=== PATIENT | female | born 1975 | race Caucasian/White ===

== ENCOUNTER → 2018-03-24 | Outpatient (CLI) | payer BC ==
--- NOTE | 2018-03-26 08:28 | MM ---
Reason for exam: screening (asymptomatic). Last mammogram was performed 3 years and 6 months ago. Physical Findings: A clinical breast exam by your physician is recommended on an annual basis and results should be correlated with mammographic findings. MG 3D Screening Mammo W/Cad Bilateral CC and MLO view(s) were taken. Prior study comparison: October 04, 2014, right breast MG work up mamm w CAD RT. September 29, 2014, bilateral MG screening mammo w CAD. The breast tissue is heterogeneously dense. This may lower the sensitivity of mammography. No significant changes when compared with prior studies. ASSESSMENT: Negative, BI-RAD 1 RECOMMENDATION: Routine screening mammogram of both breasts in 1 year.
== END | disposition home or self-care (01) ==
LOC: RADMAMWWP 10:43
PROVIDERS: ATTEND Family Medicine
DX: Z12.31 Encounter for screening mammogram for malignant neoplasm of breast (principal)
CPT/HCPCS: 77063; 77067

== ENCOUNTER → 2018-05-27 | Outpatient (CLI) | payer BC ==
--- NOTE | 2018-05-27 12:16 | MR ---
EXAMINATION TYPE: MR angio head wo con DATE OF EXAM: 05/27/2018 COMPARISON: NONE HISTORY: Cerebral aneurysm, nonruptured, family history of aneurysm TECHNIQUE: Utilizing 3-D [id number]-[id number]-[id number] intracranial MRA of the [place] was performed. FINDINGS: The vertebrobasilar and carotid systems are patent. There is 2 mm nodular extension of the distal ri ght ICA cavernous segment compatible with aneurysm.. Posterior cerebral artery in the right originat es from the anterior circulation. Hypoplastic A1 segment of the right anterior cerebral artery. IMPRESSION: 1. There is a 2 mm aneurysm cavernous segment distal right ICA.
== END | disposition home or self-care (01) ==
LOC: RADMRIMAIN 11:06
PROVIDERS: ATTEND Psychiatry & Neurology Neurology
DX: I67.1 Cerebral aneurysm, nonruptured (principal)
CPT/HCPCS: 70544

== ENCOUNTER → 2019-01-01 | Outpatient (CLI) | payer BC ==
--- NOTE | 2019-01-01 16:07 | MR ---
EXAMINATION TYPE: MR angio head wo con DATE OF EXAM: 01/01/2019 COMPARISON: 05/27/2018 HISTORY: F/U on cerebral aneurysm, family hx TECHNIQUE: Utilizing 3-D [id number]-[id number] intracranial MRA of the [place] was performed. FINDINGS: The vertebrobasilar and carotid systems are patent. There is 2 mm nodular extension of the distal rig ht ICA cavernous segment compatible with aneurysm.. Posterior cerebral artery on the right originates from the anterior circulation. Hypoplastic A1 segment of the right anterior cerebral artery. IMPRESSION: 1. Stable 2 mm right cavernous segment distal ICA aneurysm.
== END | disposition home or self-care (01) ==
LOC: RADMRIMAIN 15:00
PROVIDERS: ATTEND Psychiatry & Neurology Neurology
DX: I67.1 Cerebral aneurysm, nonruptured (principal); Z84.89 Family history of other specified conditions
CPT/HCPCS: 70544

== ENCOUNTER → 2019-04-06 | Outpatient (CLI) | payer BC ==
--- NOTE | 2019-04-08 13:55 | MM ---
Reason for exam: screening (asymptomatic). Last mammogram was performed 1 year ago. History: Taking hormonal contraceptives for 10 years. Physical Findings: A clinical breast exam by your physician is recommended on an annual basis and results should be correlated with mammographic findings. MG 3D Screening Mammo W/Cad Bilateral CC and MLO view(s) were taken. Prior study comparison: March 24, 2018, bilateral MG 3d screening mammo w/cad. October 04, 2014, right breast MG work up mamm w CAD RT. The breast tissue is heterogeneously dense. This may lower the sensitivity of mammography. There is no discrete abnormality. No significant changes when compared with prior studies. ASSESSMENT: Negative, BI-RAD 1 RECOMMENDATION: Routine screening mammogram of both breasts in 1 year.
== END | disposition home or self-care (01) ==
LOC: RADMAMWWP 10:07
PROVIDERS: ATTEND Family Medicine
DX: Z12.31 Encounter for screening mammogram for malignant neoplasm of breast (principal)
CPT/HCPCS: 77063; 77067

== ENCOUNTER 2019-06-07 09:52 | Emergency (ER) | payer BC ==
[2019-06-07 10:02] VITALS: RESP 18
--- NOTE | 2019-06-07 10:40 | XR ---
EXAMINATION TYPE: XR chest 2V DATE OF EXAM: 06/07/2019 COMPARISON: None INDICATION: Chest pain TECHNIQUE: Frontal and lateral views of the chest are obtained. FINDINGS: The heart size is normal. The pulmonary vasculature is normal. The lungs are clear. IMPRESSION: 1. No acute pulmonary process.
[2019-06-07 10:47] LABS: Basophils # (A) 0.1 k/uL (0-0.2); Basophils % (A) 1 %; Eosinophils # (A) 0.2 k/uL (0-0.7); Eosinophils % (A) 3 %; HGB 13.8 gm/dL (11.4-16.0); Lymphocytes # (A) 1.8 k/uL (1.0-4.8); Lymphocytes % (A) 25 %; MCHC 32.9 g/dL (31.0-37.0); MCV 91.2 fL (80.0-100.0); Mean Platelet Volume 8.2; Monocytes # (A) 0.3 k/uL (0-1.0); Monocytes % (A) 5 %; Neutrophils # (A) 4.6 k/uL (1.3-7.7); Neutrophils % (A) 64 %; Platelet Count 291 k/uL (150-450); RDW 12.4 % (11.5-15.5); WBC 7.1 k/uL (3.8-10.6)
[2019-06-07 10:59] LABS: INR 0.9 (<1.2); Partial Thromboplastin Time 22.8 sec (22.0-30.0); Prothrombin Time 9.4 sec (9.0-12.0)
--- NOTE | 2019-06-07 11:05 | ED ---
Chest Pain HPI - General Chief Complaint: Chest Pain Stated Complaint: Chest pain Time Seen by Provider: 06/07/19 10:00 Source: patient Mode of arrival: ambulatory Limitations: no limitations - History of Present Illness Initial Comments: The patient is a 43-year-old female, previously healthy who presents to the emergency room with reported chest pressure. States it's been present since Friday. She describes it as an intermittent pressure without radiation. No associated shortness of breath or nausea. Denies any provocative factors. States that it does feel better when she lays down and is worse when she stands up. Denies ripping or tearing sensation to her back. No chest palpitations. Denies nausea, vomiting or diaphoresis. No epigastric abdominal pain. Denies a cough or hemoptysis. No fevers or chills. Denies any unilateral numbness or weakness. No history of DVT or PE. No calf pain or swelling. No family history of premature cardiac disease. No family history of blood clotting disorders. There are no alleviating, reporting specialist modifying factors - Related Data Home Medications Medication Instructions Recorded Confirmed Norgestimate-Ethinyl Estradiol 1 tab PO HS 06/07/19 06/07/19 [Tri-Estarylla Tablet] Allergies Allergy/AdvReac Type Severity Reaction Status Date / Time No Known Allergies Allergy Verified 06/07/19 09:59 Review of Systems ROS Statement: Those systems with pertinent positive or pertinent negative responses have been documented in the HPI. ROS Other: All systems not noted in ROS Statement are negative. EKG Findings - EKG Comments: EKG Findings:: EKG demonstrates normal sinus rhythm with ventricular rate of 75. FL interval 132. Contrast 92. QTC 435. No acute ST segment elevations or depressions. No signs of Qdygi-Jlavbhgdr-Idvgs or Brugada syndrome. Past Medical History Past Medical History: No Reported History History of Any Multi-Drug Resistant Organisms: None Reported Past Surgical History: Section Past Psychological History: No Psychological Hx Reported Smoking Status: Never smoker Past Alcohol Use History: Occasional Past Drug Use History: None Reported General Exam Limitations: no limitations General appearance: alert, in no apparent distress Head exam: Present: atraumatic, normocephalic, normal inspection Eye exam: Present: normal appearance, PERRL, EOMI. Absent: scleral icterus, conjunctival injection, periorbital swelling ENT exam: Present: normal exam, mucous membranes moist Neck exam: Present: normal inspection. Absent: tenderness, meningismus, lymphadenopathy Respiratory exam: Present: normal lung sounds bilaterally. Absent: respiratory distress, wheezes, rales, rhonchi, stridor Cardiovascular Exam: Present: regular rate, normal rhythm, normal heart sounds. Absent: systolic murmur, diastolic murmur, rubs, gallop, clicks GI/Abdominal exam: Present: soft, normal bowel sounds. Absent: distended, tenderness, guarding, rebound, rigid Extremities exam: Present: normal inspection, full ROM, normal capillary refill. Absent: tenderness, pedal edema, joint swelling, calf tenderness Back exam: Present: normal inspection Neurological exam: Present: alert, oriented X3, CN II-XII intact Psychiatric exam: Present: normal affect, normal mood Skin exam: Present: warm, dry, intact, normal color. Absent: rash Course Vital Signs 06/07/19 06/07/19 06/07/19 10:00 10:09 12:13 Temperature 97.9 F Pulse Rate 66 78 Pulse Rate [ 75 Consultants Intern ] Respiratory 18 18 18 Rate Blood Pressure 134/76 140/87 O2 Sat by Pulse 100 96 Oximetry 06/07/19 12:46 Temperature 98.4 F Pulse Rate 75 Pulse Rate [ Consultants Intern ] Respiratory 18 Rate Blood Pressure 121/72 O2 Sat by Pulse 98 Oximetry Chest Pain MDM - MDM Upon arrival the patient is placed in room 16. A thorough history and physical exam was performed. 12-lead EKG is performed. Laboratory studies were conducted. CBC, CMP and coagulation studies are unremarkable. D-dimer is elevated at 0.56. Discuss results the patient. I was recommending a CT of the patient's chest because of her elevated d-dimer with chest pain. CT demonstrates no acute pulmonary embolism. I reevaluated the patient. Continue discuss the differential. The patient is pain-free at this time. The patient has been symptomatic since Friday troponin remains negative at this time. The patient will be discharged home. Recommend an echo patient's heart as well as Holter monitoring. If she has any new or worsening symptoms she should return to the emergency room. Patient was in agreement with the treatment plan she was discharged home in stable condition Disposition Clinical Impression: Chest pain Disposition: HOME SELF-CARE Condition: Stable Instructions (If sedation given, give patient instructions): Chest Pain (ED) Additional Instructions: Please follow-up with your primary care doctor. I do recommend an echo of your heart. Return to the emergency room for any worsening symptoms Is patient prescribed a controlled substance at d/c from ED?: No Referrals: Jeanmarie Ronquillo MD [Primary Care Provider] - 1-2 days Time of Disposition: 12:37
[2019-06-07 11:14] LABS: ALT 17 U/L (4-34); AST 27 U/L (14-36); African American GFR (CKD) >90 (>60 ml/min/1.73 sqM); Albumin 4.6 g/dL (3.5-5.0); Alkaline Phosphatase 56 U/L (38-126); Anion Gap 10 mmol/L; Blood Urea Nitrogen 14 mg/dL (7-17); Carbon Dioxide 23 mmol/L (22-30); Chloride 102 mmol/L (98-107); Glucose 90 mg/dL (74-99); Non-African American GFR(CKD) >90 (>60 ml/min/1.73 sqM); Potassium 3.9 mmol/L (3.5-5.1); Sodium 135 mmol/L (137-145); Total Bilirubin 0.6 mg/dL (0.2-1.3); Total Protein 7.8 g/dL (6.3-8.2)
--- NOTE | 2019-06-07 12:10 | CT ---
CT CHEST FOR PULMONARY EMBOLISM. EXAMINATION TYPE: CT chest angio for PE DATE OF EXAM: 06/07/2019 INDICATION: Mid to left sided chest pain. CT DLP: 281.5 mGycm, Automated exposure control for dose reduction was used. CONTRAST: Patient injected with 100 mL of Isovue 370. COMPARISON: None TECHNIQUE: CT of the chest is performed on a spiral scan at 2 mm thick sections. Study is performed with intravenous contrast timed for evaluation for pulmonary embolism. This will limit additional po rtions of the evaluation. 3-D MIP images reconstructed by the technologist are reviewed on the compu ter in the coronal and sagittal planes. FINDINGS: No persistent filling defects are evident to suggest an acute pulmonary embolism. No mediastinal or hilar adenopathy enlarged by CT criteria is evident. The ascending aorta diameter at the level of the main pulmonary artery is 3.3 cm. The main pulmonary artery diameter at the bifur cation is 2.5 cm. Lung windows are clear. Limited CT section through the upper abdomen are unremarkable. IMPRESSIONS: 1. No acute pulmonary embolism. 2. Visualized aorta is unremarkable. 3. No acute pulmonary process.
[2019-06-07 12:47] VITALS: BP 121/72; PULSE 75; TEMP 98.4
== END 2019-06-07 12:46 | disposition home or self-care (01) ==
LOC: EC 09:52
DX: R07.89 Other chest pain (principal); R79.1 Abnormal coagulation profile; Z79.3 Long term (current) use of hormonal contraceptives
CPT/HCPCS: 99285; 36415; 93005; 85379; 80053; 84484; 85025; 85610; 85730; 71046; 71275; Q9967

== ENCOUNTER → 2019-06-15 | Outpatient (CLI) | payer BC ==
--- NOTE | 2019-06-15 15:15 | ECHOS ---
STRESS ECHOCARDIOGRAM INDICATIONS: Chest pain and abnormal ECG MEDICATIONS: None. BASELINE HEART RATE: 62 BASELINE BLOOD PRESSURE: 116/71 MAXIMUM HEART RATE: 163 MAXIMUM BLOOD PRESSURE: 167/86 85% MPHR: 152 100% MPHR: 179 METS: 13.1 MAXIMUM STAGE REACHED: 4 TOTAL EXERCISE TIME: 12:55 CLINICAL INFORMATION: A 43-year-old female who was referred by Dr. Ronquillo for evaluation of chest pain and abnormal ECG baseline. She underwent an exercise stress echo, baseline heart rate 62 beats per minute. Baseline blood pressure 116/71 mmHg. Baseline 12-lead ECG shows sinus rhythm with early repolarization abnormality of 1 mm inferolaterally and occasional PVCs, left bundle branch block morphology and upright QRS in lead 2. Patient exercised on Cirilo protocol for almost 13 minutes achieving a peak heart rate of 161 beats per minute. Normal blood pressure response to exercise. No ECG evidence for ischemia. No arrhythmias noted. No nonsustained ventricular tachycardia. The baseline 2D echo images showed normal LV function without segmental wall motion abnormalities. At peak exercise, there was excellent augmentation of the contractility without developing any wall motion abnormalities. At recovery, regional global LV systolic function remained normal. IMPRESSION: Full excellent exercise capacity. No ECG or echocardiographic evidence for ischemia. Earlier repolarization abnormality at these sites. MMODL / IJN: [id number] /
== END | disposition home or self-care (01) ==
LOC: RADNMMAIN 09:52
PROVIDERS: ATTEND Family Medicine
DX: R94.39 Abnormal result of other cardiovascular function study (principal)
CPT/HCPCS: 93351

== ENCOUNTER → 2020-02-24 | Outpatient (CLI) | payer BC ==
--- NOTE | 2020-02-24 09:51 | MR ---
EXAMINATION TYPE: MR angio head wo con DATE OF EXAM: 02/24/2020 COMPARISON: MRA brain January 01, 2019 and older MRA studies. HISTORY: Headaches, Known small aneurysm TECHNIQUE: Time of flight images focusing on the [place] were performed without contrast.. 2-D and 3-D postprocessing imaging is performed on independent workstation. FINDINGS: Codominant vertebrobasilar system. No significant focal stenosis or aneurysmal change in th e posterior circulation. Patent bilateral posterior communicating arteries redemonstrated. Images of anterior circulation redemonstrate patent anterior communicating artery. There is stable fo anthony right eccentric 2.1 mm aneurysm of the cavernous segment distal right internal carotid artery on image 58. No new aneurysm or significant focal stenosis is present. IMPRESSION: Stable 2.1 mm eccentric aneurysm distal right internal carotid artery.
--- NOTE | 2020-02-24 10:12 | MR ---
EXAMINATION TYPE: MR brain wo con DATE OF EXAM: 02/24/2020 COMPARISON: NONE HISTORY: Headaches, Known small aneurysm TECHNIQUE: Multiplanar, multisequence imaging of the brain and brainstem is performed without IV cont rast. FINDINGS: Diffusion weighted images demonstrate no evidence of a recent infarct or other diffusion abnormality. There is no worrisome extra-axial fluid collection. The ventricular system and cisternal spaces are normal in size and appearance. The brain volume is age appropriate. Occasional small focus of T2 hyp erintensity is seen throughout the white matter bilaterally. Roughly 4-5 tiny scattered lesions are p resent. Midline structures demonstrate normal morphology. The craniocervical junction appears within normal limits. Normal vascular flow voids are present. The visualized sinuses are clear and the globes are i ntact. 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
== END | disposition home or self-care (01) ==
LOC: RADMRIMAIN 08:08
PROVIDERS: ATTEND Psychiatry & Neurology Neurology
DX: I67.1 Cerebral aneurysm, nonruptured (principal); R90.82 White matter disease, unspecified; G45.9 Transient cerebral ischemic attack, unspecified; G44.219 Episodic tension-type headache, not intractable
CPT/HCPCS: 70544; 70551

== ENCOUNTER → 2020-05-15 | Outpatient (CLI) | payer BC ==
--- NOTE | 2020-05-16 14:36 | MM ---
Reason for exam: screening (asymptomatic). Last mammogram was performed 1 year and 1 month ago. History: Took hormonal contraceptives for 10 years. Physical Findings: A clinical breast exam by your physician is recommended on an annual basis and results should be correlated with mammographic findings. MG 3D Screening Mammo W/Cad Bilateral CC and MLO view(s) were taken. Prior study comparison: April 06, 2019, bilateral MG 3d screening mammo w/cad. March 24, 2018, bilateral MG 3d screening mammo w/cad. The breast tissue is heterogeneously dense. This may lower the sensitivity of mammography. No significant changes when compared with prior studies. ASSESSMENT: Benign, BI-RAD 2 RECOMMENDATION: Routine screening mammogram of both breasts in 1 year.
== END | disposition home or self-care (01) ==
LOC: RADMAMWWP 08:50
PROVIDERS: ATTEND Family Medicine
DX: Z12.31 Encounter for screening mammogram for malignant neoplasm of breast (principal)
CPT/HCPCS: 77063; 77067

== ENCOUNTER → 2021-01-21 | Outpatient (CLI) | payer BC ==
--- NOTE | 2021-01-22 01:19 | MR ---
EXAMINATION TYPE: MR brain wo con DATE OF EXAM: 01/21/2021 COMPARISON: 02/24/2020 HISTORY: Headaches, F/U comparison cerebral aneurysm. Ventricles have normal size. There is no mass effect nor midline shift. There is no evidence of intra cranial hemorrhage. Diffusion images show no sign of an acute infarct. There is mucosal thickening in the maxillary sinuses and frontal and ethmoid sinuses. The duffy-white matter structures have fairly normal signal pattern. There is no evidence of cerebral edema. Brainstem is intact. Low some appears normal. Sella turcica is normal. IMPRESSION: Negative MR scan of the brain. No adverse change compared to old exam. There is sinusitis that appears new compared to old exam.
--- NOTE | 2021-01-22 01:31 | MR ---
EXAMINATION TYPE: MR angio head wo con DATE OF EXAM: 01/21/2021 COMPARISON: 02/24/2020 HISTORY: Headaches, F/U comparison cerebral aneurysm. MR angiographic images were obtained of the intracerebral arterial circulation. There is arterial flow in the vertebrobasilar artery system. There is arterial flow in the anterior m iddle and posterior cerebral arteries. There is arterial flow in the distal internal cord arteries bi laterally. There is no mass effect. There is no evidence of hemodynamic stenosis. There is 2.5 mm elongated aneurysm involving the right internal artery in the parasellar region on th e right lateral aspect. This is not changed in size compared to previous exam. There is large right posterior communicating artery. There is diminutive left posterior communicating artery. The right posterior cerebral artery appears to fill mostly through the posterior communicati ng artery. There is patency of the anterior communicating artery. IMPRESSION: Distal right internal carotid artery small aneurysm is stable compared to old exam.
== END | disposition home or self-care (01) ==
LOC: RADMRIMAIN 15:02
PROVIDERS: ATTEND Psychiatry & Neurology Neurology
DX: I67.1 Cerebral aneurysm, nonruptured (principal)
CPT/HCPCS: 70544; 70551

== ENCOUNTER → 2021-05-22 | Outpatient (CLI) | payer BC ==
--- NOTE | 2021-05-23 14:05 | MM ---
Reason for exam: screening (asymptomatic). Last mammogram was performed 1 year ago. History: Took hormonal contraceptives for 10 years. Physical Findings: A clinical breast exam by your physician is recommended on an annual basis and results should be correlated with mammographic findings. MG 3D Screening Mammo W/Cad Bilateral CC, MLO, and XCCL view(s) were taken. Prior study comparison: May 15, 2020, bilateral MG 3d screening mammo w/cad. April 06, 2019, bilateral MG 3d screening mammo w/cad. The breast tissue is heterogeneously dense. This may lower the sensitivity of mammography. There is no discrete abnormality. ASSESSMENT: Negative, BI-RAD 1 RECOMMENDATION: Routine screening mammogram of both breasts in 1 year.
== END | disposition home or self-care (01) ==
LOC: RADMAMWWP 09:08
PROVIDERS: ATTEND Family Medicine
DX: Z12.31 Encounter for screening mammogram for malignant neoplasm of breast (principal)
CPT/HCPCS: 77063; 77067

== ENCOUNTER → 2024-01-15 | Outpatient (CLI) | payer BC ==
--- NOTE | 2024-01-15 10:53 | MR ---
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 Technical: MRA brain: 2D and 3-D [id number] Axial with MIP and 3-D reconstruction. Performed on a separate w orkstation. MRA neck: Multiplanar, multi-sequence imaging as well as [id number] and phase was performed extra cranial vasculature of the neck. 3-D reformatted images and maximum intensity projection reformatted images were submitted for evaluation, these are performed on a separate workstation. IV Contrast: 6.5ml cc Gadavist Findings: Vertebral arteries: The vertebral arteries are patent. Vertebral arteries are: Codominant. Basilar artery: The basilar artery is intact. The basilar artery bifurcation is normal. Internal Carotid arteries: Blind-ending contrast the distal right internal carotid artery is unchange d since image 98 measures up to 2 mm. The cervical, petrous, cavernous and supraclinoid segments a re normal. RANDY: Patent with no evidence of aneurysm. ACOM: Present without evidence of aneurysm. MCA: Patent with no evidence of aneurysm. 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 origin right, normal left. PCOM: Hypoplastic left. origin of the right posterior cerebral artery. RIGHT CAROTID SYSTEM: The common carotid artery is patent. The carotid bifurcations demonstrates no e vidence for hemodynamically significant stenosis. The internal carotid artery is patent. LEFT CAROTID SYSTEM: The common carotid artery is patent. The carotid bifurcations demonstrates no e vidence for hemodynamically significant stenosis. The internal carotid artery is patent. The origins of the great vessels and vertebral arteries appear unremarkable. Vertebral arteries are c odominant. IMPRESSION: 1. Stable right distal internal carotid artery linear blind-ending extension of the carotid artery p ossibly representing small aneurysm versus dilated infundibulum from a small vessel. Not significantl y changed from 2018. 2. No evidence of significant stenosis at the carotid bifurcations. The carotid and vertebral arteri es are patent. 3. No evidence aneurysm. [facility], , 01/15/2024 10:51 AM
== END | disposition home or self-care (01) ==
LOC: RADMRIMAIN 08:22
PROVIDERS: ATTEND Psychiatry & Neurology Neurology
DX: I67.1 Cerebral aneurysm, nonruptured (principal); G45.9 Transient cerebral ischemic attack, unspecified; G44.219 Episodic tension-type headache, not intractable
CPT/HCPCS: 70544; 70549